=== PATIENT | male | born 1965 | race Caucasian/White ===

== ENCOUNTER 2016-12-21 08:56 | Emergency (ER) | payer OTHER ==
[~2016-12-21] VITALS: Ht 190.5 cm; Wt 122.7 kg
[~2016-12-21 08:56] MED LIST: /CIPR75TA OR; FLAG500T OR; HYDR25TA6 OR; LISI20TA5 OR; NAPR500T OR; OMEP20TA7 OR; PERC5TAB8 OR; SYNT112T OR; VALI10TA OR; VICO5TAB OR
[2016-12-21] MEDS ORDERED: HYDR1CAP25 (09:06)
[2016-12-21] MEDS ORDERED: PRAZ2CAP (09:06)
[2016-12-21] MEDS ORDERED: BUPR150T5 (09:06)
[2016-12-21] MEDS ORDERED: VIAG100T (09:06)
[2016-12-21] MEDS ORDERED: ONDANSETRON 4MG/2ML VIAL (J2405) IV ONE (09:15)
[2016-12-21] MEDS ORDERED: NS 1,000 ML IV ONE (09:15)
[2016-12-21] MEDS: MORPHINE 4 MG/ML 1ML SYRINGE IV PRN ×2 (09:31→10:11)
[2016-12-21] MEDS ORDERED: GASTROGRAFIN SOLUTION 30ML (Q9963) As Ordered ONE (09:37)
[2016-12-21 09:40] LABS: BASO % 0.4 % (0.0-1.0); EOS % 3.8 % (0.0-3.0); LARGE UNSTAINED CELL % 1.1 % (0.0-4.0); LYMPH # 1.9 K/mm3 (1.5-4.5); LYMPH % 18.2 % (24.0-44.0); MEAN CORPUSCULAR HEMOGLOBIN 31.2 pg (27.0-33.0); MEAN CORPUSCULAR HGB CONC 34.4 g/dl (32.0-36.5); MEAN CORPUSCULAR VOLUME 90.9 fl (80.0-96.0); MONO # 0.5 K/mm3 (0.0-0.8); MONO % 5.1 % (0.0-5.0); NEUTROPHILS # 6.9 K/mm3 (1.8-7.7); NEUTROPHILS % 71.5 % (36.0-66.0); PLATELET COUNT, AUTOMATED 240 k/mm3 (150-450); RED CELL DISTRIBUTION WIDTH 13.6 % (11.5-14.5); WHITE BLOOD COUNT 9.7 K/mm3 (4.0-10.0)
[2016-12-21 09:41] LABS: EOS # 0.4 K/mm3 (0.0-0.50); LARGE UNSTAINED CELL # 0.1 K/mm3 (0.0-0.4)
[2016-12-21] MEDS ORDERED: GASTROGRAFIN SOLUTION 30ML PO ONE (09:45)
[2016-12-21 10:02] LABS: ANION GAP 6 MEQ/L (8-16); BLOOD UREA NITROGEN 15 MG/DL (7-18); CALCIUM LEVEL 9.3 MG/DL (8.5-10.1); CARBON DIOXIDE LEVEL 25 MEQ/L (21-32); CHLORIDE LEVEL 107 MEQ/L (98-107); CREATININE FOR GFR 1.04 MG/DL (0.70-1.30); GLOMERULAR FILTRATION RATE > 60.0 (>56); GLUCOSE, FASTING 119 MG/DL (70-105); POTASSIUM SERUM 4.1 MEQ/L (3.5-5.1); SODIUM LEVEL 138 MEQ/L (136-145)
[2016-12-21] MEDS ORDERED: GASTROGRAFIN SOLUTION 30ML (Q9963) PO ONE (10:15)
[2016-12-21] MEDS ORDERED: ISOVUE-370 76% 100ML VIAL (Q9967) As Ordered ONE (10:20)
--- NOTE | 2016-12-21 11:47 | REP ---
CT of the abdomen pelvis with IV and bowel contrast: Comparison is 04/30/2016. There is very mild focal pericolonic inflammation at the distal descending colon adjacent to colonic diverticula , similar to the comparison study. This is compatible with mild diverticulitis. There is no evidence of focal fluid collection or abscess. There is no pneumoperitoneum. There is no peritoneal fluid collection. There is no bowel distension or obstruction. The visualized lung peters are unremarkable. The hepatic parenchyma is homogeneous. The gallbladder, pancreas and spleen are unremarkable. The adrenals, kidneys and abdominal aorta are unremarkable except for a 1 cm right renal cortical cyst. This is unchanged. The abdominal aorta and retroperitoneum are unremarkable. There is no bowel distension or obstruction. Mesentery is otherwise unremarkable. Prostatic of this are incidentally noted. The bladder is unremarkable. Impression: Findings are compatible with diverticulitis without evidence of abscess formation. There is no peritoneal fluid or pneumoperitoneum. Findings are similar to 04/30/2016. Signed by Blayne Hamilton MD 12/21/2016 11:39 A
[2016-12-21] MEDS ORDERED: FLAG500T PO (12:38)
[2016-12-21] MEDS ORDERED: ZOFR4TAB3 PO (12:38)
[2016-12-21] MEDS ORDERED: CIPR-249 PO (12:38)
[2016-12-21] MEDS ORDERED: NORCOTAB PO (12:38)
[2016-12-21 12:51] VITALS: BP 138/90
== END 2016-12-21 13:13 | disposition home or self-care (01) ==
LOC: M ED 08:56
DX: K57.30 Diverticulosis of large intestine without perforation or abscess without bleeding (principal); I10 Essential (primary) hypertension; E03.9 Hypothyroidism, unspecified; F41.9 Anxiety disorder, unspecified; F17.210 Nicotine dependence, cigarettes, uncomplicated; Z79.899 Other long term (current) drug therapy
CPT/HCPCS: 74177; 80048; 81001; 85025; 96361; 96374; 96375; 96376; 99283; J2405; Q9963; Q9967

== ENCOUNTER 2018-01-27 05:19 | Observation (INO) | payer OTHER ==
[2018-01-27] MEDS: NS 500 ML IV (06:15)
[2018-01-27] MEDS: HYDROMORPHONE HCL 0.5 MG/ 0.5 ML SYRINGE (J1170 PER 1) IV ×2 (06:26→06:38)
[2018-01-27] MEDS: GASTROGRAFIN SOLUTION 30ML PO ×2 (06:30→07:00)
[2018-01-27 06:37] LABS: BASO # 0.1 10^3/uL (0.0-0.2); BASO % 0.6 % (0.0-1.0); EOS # 0.3 10^3/uL (0.0-0.50); EOS % 3.5 % (0.0-3.0); HEMATOCRIT 43.1 % (42.0-52.0); HEMOGLOBIN 14.5 g/dl (13.5-17.5); IMMATURE GRANULOCYTE % 0.4 % (0-3.0); LYMPH # 2.2 10^3/uL (1.5-4.5); LYMPH % 23.8 % (24.0-44.0); MEAN CORPUSCULAR HEMOGLOBIN 31.3 pg (27.0-33.0); MEAN CORPUSCULAR HGB CONC 33.6 g/dl (32.0-36.5); MEAN CORPUSCULAR VOLUME 92.9 fl (80.0-96.0); MONO # 0.8 10^3/uL (0.0-0.8); MONO % 8.6 % (0.0-5.0); NEUTROPHILS # 5.9 10^3/uL (1.8-7.7); NEUTROPHILS % 63.1 % (36.0-66.0); PLATELET COUNT, AUTOMATED 242 10^3/uL (150-450); RED BLOOD COUNT 4.64 10^6/uL (4.30-6.10); RED CELL DISTRIBUTION WIDTH 13.7 % (11.5-14.5); WHITE BLOOD COUNT 9.4 10^3/uL (4.0-10.0)
[2018-01-27 06:58] LABS: ALBUMIN 3.8 GM/DL (3.2-5.2); ALBUMIN/GLOBULIN RATIO 1.06 (1.00-1.93); ALKALINE PHOSPHATASE 59 U/L (45-117); ALT/SGPT 52 U/L (12-78); ANION GAP 7 MEQ/L (8-16); AST/SGOT 24 U/L (7-37); BILIRUBIN,DIRECT 0.1 MG/DL (0.0-0.2); BILIRUBIN,TOTAL 0.4 MG/DL (0.2-1.0); BLOOD UREA NITROGEN 11 MG/DL (7-18); CALCIUM LEVEL 8.8 MG/DL (8.5-10.1); CARBON DIOXIDE LEVEL 26 MEQ/L (21-32); CHLORIDE LEVEL 107 MEQ/L (98-107); CREATININE FOR GFR 1.16 MG/DL (0.70-1.30); GLOMERULAR FILTRATION RATE > 60.0 (>56); GLUCOSE, FASTING 121 MG/DL (70-100); LIPASE 171 U/L (73-393); POTASSIUM SERUM 4.1 MEQ/L (3.5-5.1); SODIUM LEVEL 140 MEQ/L (136-145); TOTAL PROTEIN 7.4 GM/DL (6.4-8.2)
[2018-01-27 07:05] LABS: APPEARANCE, URINE CLEAR (CLEAR); BACTERIA, URINE AUTO NEGATIVE (NEGATIVE); BILIRUBIN, URINE AUTO NEGATIVE (NEGATIVE); BLOOD, URINE BLOOD NEGATIVE (NEGATIVE); COLOR, URINE YELLOW (YELLOW); GLUCOSE, URINE (UA) AUTO NEGATIVE (NEGATIVE); KETONE, URINE AUTO NEGATIVE (NEGATIVE); LEUKOCYTE ESTERASE, URINE AUTO 1+ (NEGATIVE); MUCUS, URINE SMALL (NEGATIVE); NITRITE, URINE AUTO NEGATIVE (NEGATIVE); PROTEIN, URINE AUTO NEGATIVE (NEGATIVE); RBC, URINE AUTO 2 /HPF (0-3); SPECIFIC GRAVITY URINE AUTO 1.015 (1.002-1.035); SQUAMOUS EPITHELIAL CELL UR AU 0 /HPF (0-6); UROBILINOGEN, URINE AUTO 0.2 mg/dL (0.0-2.0); WBC, URINE AUTO 9 /HPF (0-3)
[2018-01-27] MEDS ORDERED: METAL LOCK LOOP XX (07:25)
[2018-01-27] MEDS ORDERED: ISOVUE-370 76% 100ML VIAL (Q9967) As Ordered (07:59)
[2018-01-27] MEDS: ONDANSETRON 4MG/2ML VIAL (J2405) IV (08:15)
[2018-01-27] MEDS: MORPHINE 4 MG/ML 1ML VIAL/SYRINGE (J2270) IV ×4 (08:28→20:48)
[2018-01-27] MEDS: NS 1,000 ML IV ×3 (08:45→13:05)
[2018-01-27] MEDS: CIPROFLOXACIN 400 MG in APPROPRIATE DILUENT 1 EA IV ×2 (08:45→20:48)
[2018-01-27] MEDS: DOCUSATE SODIUM 100 MG CAP PO ×2 (09:00→20:42)
[2018-01-27] MEDS: metroNIDAZOLE 500 MG in APPROPRIATE DILUENT 1 EA IV ×2 (09:25→17:54)
[2018-01-27] MEDS ORDERED: BISACODYL 5 MG TAB PO (10:15)
[2018-01-27] MEDS: PERCOCET 5MG/325MG TAB PO ×2 (12:36→18:29)
[2018-01-27] MEDS ORDERED: ALBUTEROL 90 MCG/ACT 8GM HFA INHALER INH (13:15)
[2018-01-27] MEDS ORDERED: LORATADINE 10 MG TAB PO (13:15)
[2018-01-27] MEDS ORDERED: hydrOXYzine 25 MG TAB PO (13:15)
[2018-01-27] MEDS ORDERED: diazePAM 5 MG TAB PO (13:15)
[2018-01-27] MEDS: OMEPRAZOLE 20 MG CAP PO (17:53)
[2018-01-27] MEDS: buPROPion **SR TABLET** (ZYBAN) 150MG PO (17:53)
[2018-01-27] MEDS: NICOTINE 7 MG/24 HR TRANSDERMAL TD (17:54)
[2018-01-27] MEDS: ACETAMINOPHEN TAB 650MG DOSE (2X325MG) PO (18:02)
[2018-01-27] MEDS: PREGABALIN 75 MG CAP(LYRICA) PO ×2 (20:43→20:55)
[2018-01-27] MEDS: LISINOPRIL 20 MG TAB PO (20:43)
[2018-01-27] MEDS: diazePAM 5 MG TAB PO (20:43)
[2018-01-27] MEDS: PRAZOSIN 1 MG CAP PO (20:47)
[2018-01-27] MEDS: SYMBICORT 80/4.5MCG INHALER 6GM INH (21:00)
[2018-01-28] MEDS: PERCOCET 5MG/325MG TAB PO (00:46)
[2018-01-28] MEDS: metroNIDAZOLE 500 MG in APPROPRIATE DILUENT 1 EA IV (02:44)
[2018-01-28] MEDS: LEVOTHYROXINE 150MCG TABLET (0.15MG) PO (05:52)
[2018-01-28 08:14] LABS: HEMATOCRIT 38.3 % (42.0-52.0); HEMOGLOBIN 12.7 g/dl (13.5-17.5); MEAN CORPUSCULAR HEMOGLOBIN 31.1 pg (27.0-33.0); MEAN CORPUSCULAR HGB CONC 33.2 g/dl (32.0-36.5); MEAN CORPUSCULAR VOLUME 93.6 fl (80.0-96.0); PLATELET COUNT, AUTOMATED 199 10^3/uL (150-450); RED BLOOD COUNT 4.09 10^6/uL (4.30-6.10); RED CELL DISTRIBUTION WIDTH 13.8 % (11.5-14.5); WHITE BLOOD COUNT 7.3 10^3/uL (4.0-10.0)
[2018-01-28 08:31] LABS: ANION GAP 5 MEQ/L (8-16); BLOOD UREA NITROGEN 8 MG/DL (7-18); CALCIUM LEVEL 8.2 MG/DL (8.5-10.1); CARBON DIOXIDE LEVEL 26 MEQ/L (21-32); CHLORIDE LEVEL 109 MEQ/L (98-107); CREATININE FOR GFR 0.93 MG/DL (0.70-1.30); GLOMERULAR FILTRATION RATE > 60.0 (>56); GLUCOSE, FASTING 107 MG/DL (70-100); MAGNESIUM LEVEL 2.1 MG/DL (1.8-2.4); POTASSIUM SERUM 4.3 MEQ/L (3.5-5.1); SODIUM LEVEL 140 MEQ/L (136-145)
[2018-01-28] MEDS: OMEPRAZOLE 20 MG CAP PO (09:04)
[2018-01-28] MEDS: buPROPion **SR TABLET** (ZYBAN) 150MG PO (09:05)
[2018-01-28] MEDS: PREGABALIN 75 MG CAP(LYRICA) PO (09:05)
[2018-01-28] MEDS: DOCUSATE SODIUM 100 MG CAP PO (09:05)
[2018-01-28] MEDS: NICOTINE 7 MG/24 HR TRANSDERMAL TD (09:05)
[2018-01-28] MEDS: LISINOPRIL 20 MG TAB PO (09:05)
[2018-01-28] MEDS: SYMBICORT 80/4.5MCG INHALER 6GM INH (09:06)
== END 2018-01-28 09:14 | disposition home or self-care (01) ==
LOC: M ED 05:19 → M ED INP 10:03 → M MSPAV 12:05
DX: K57.32 Diverticulitis of large intestine without perforation or abscess without bleeding (principal); F43.10 Post-traumatic stress disorder, unspecified; I10 Essential (primary) hypertension; G47.33 Obstructive sleep apnea (adult) (pediatric); E06.3 Autoimmune thyroiditis; Z79.899 Other long term (current) drug therapy
CPT/HCPCS: J2270

== ENCOUNTER 2018-06-27 08:29 | Day surgery (SDC) | payer OTHER ==
[~2018-06-27] VITALS: Ht 193 cm; Wt 110.7 kg
[~2018-06-27 08:29] MED LIST changes: +BUPR150T5 PO; +CIPR-249 PO; +DIAZ5TAB PO; +FLAG500T PO; +HYDR-3363 PO; +HYDR1CAP25; +LEVO150T42 PO; +LISI20TA PO; +LORA10TA3 PO; +LYRI75CA PO; +NAPR-885 PO; +NORCOTAB PO; +OMEP20CA3 PO; +PERCOCET PO; +PRAZ2CAP PO; +SYMB80INH INH; +VENTAER INH; +VIAG100T PO; +ZOFR4TAB14 PO
[2018-06-27] MEDS ORDERED: NS 1,000 ML IV SCH (10:00)
[2018-06-27] MEDS ORDERED: PROPOFOL 200 MG/20 ML VIAL As Ordered ONE ×2 (10:08→11:43)
[2018-06-27] MEDS ORDERED: LIDOCAINE 2% INJ 100 MG/5 ML SDV (FOR ANES.) As Ordered ONE (10:08)
--- NOTE | 2018-06-27 12:00 | ROOR ---
Patient Name: Emigdio Leon Procedure Date: 06/27/2018 11:13 AM Date of : 1965 Age: 53 Room: [facility] Gender: Male Note Status: Finalized Procedure: Upper GI endoscopy Indications: Follow-up of Nicole's esophagus Providers: Tristen Powell MD Referring MD: [facility], Admin. Requesting Provider: Medicines: Monitored Anesthesia Care Complications: No immediate complications. Procedure: Pre-Anesthesia Assessment: - Prior to the procedure, a History and Physical was performed, and patient medications and allergies were reviewed. The patient is competent. The risks and benefits of the procedure and the sedation options and risks were discussed with the patient. All questions were answered and informed consent was obtained. Patient identification and proposed procedure were verified by the physician, the nurse and the anesthesiologist in the endoscopy suite. Mental Status Examination: alert and oriented. Airway Examination: normal oropharyngeal airway and neck mobility. Respiratory Examination: clear to auscultation. CV Examination: normal. Prophylactic Antibiotics: The patient does not require prophylactic antibiotics. Prior Anticoagulants: The patient has taken no previous anticoagulant or antiplatelet agents. ASA Grade Assessment: II - A patient with mild systemic disease. After reviewing the risks and benefits, the patient was deemed in satisfactory condition to undergo the procedure. The anesthesia plan was to use monitored anesthesia care (MAC). Immediately prior to administration of medications, the patient was re-assessed for adequacy to receive sedatives. The heart rate, respiratory rate, oxygen saturations, blood pressure, adequacy of pulmonary ventilation, and response to care were monitored throughout the procedure. The physical status of the patient was re-assessed after the procedure. The Endoscope was introduced through the mouth, and advanced to the third part of duodenum. The upper GI endoscopy was accomplished without difficulty. The patient tolerated the procedure well. Findings: The Z-line was irregular and was found 38 cm from the incisors. This was biopsied with a cold forceps for histology. Estimated blood loss was minimal. Bilious fluid was found in the gastric body. The duodenal bulb, first portion of the duodenum, second portion of the duodenum and third portion of the duodenum were normal. Impression: - Z-line irregular, 38 cm from the incisors. Biopsied. - Bilious gastric fluid. - Normal duodenal bulb, first portion of the duodenum, second portion of the duodenum and third portion of the duodenum. Recommendation: - Discharge patient to home (ambulatory). - Continue present medications. - Telephone my office for pathology results in 1 week. Tristen Powell MD Tristen Powell MD 06/27/2018 12:00:40 PM This report has been signed electronically. Number of Addenda: 0 Note Initiated On: 06/27/2018 11:13 AM Estimated Blood Loss: Estimated blood loss was minimal.
--- NOTE | 2018-06-27 12:07 | ROOR ---
Patient Name: Emigdio Leon Procedure Date: 06/27/2018 11:14 AM Date of : 1965 Age: 53 Room: [facility] Gender: Male Note Status: Finalized Procedure: Colonoscopy Indications: Abdominal pain in the left lower quadrant, Diverticulitis Providers: Tristen Powell MD Referring MD: [facility], Admin. Requesting Provider: Medicines: Monitored Anesthesia Care Complications: No immediate complications. Procedure: Pre-Anesthesia Assessment: - Prior to the procedure, a History and Physical was performed, and patient medications and allergies were reviewed. The patient is competent. The risks and benefits of the procedure and the sedation options and risks were discussed with the patient. All questions were answered and informed consent was obtained. Patient identification and proposed procedure were verified by the physician, the nurse and the anesthesiologist in the endoscopy suite. Mental Status Examination: alert and oriented. Airway Examination: normal oropharyngeal airway and neck mobility. Respiratory Examination: clear to auscultation. CV Examination: normal. Prophylactic Antibiotics: The patient does not require prophylactic antibiotics. Prior Anticoagulants: The patient has taken no previous anticoagulant or antiplatelet agents. ASA Grade Assessment: II - A patient with mild systemic disease. After reviewing the risks and benefits, the patient was deemed in satisfactory condition to undergo the procedure. The anesthesia plan was to use monitored anesthesia care (MAC). Immediately prior to administration of medications, the patient was re-assessed for adequacy to receive sedatives. The heart rate, respiratory rate, oxygen saturations, blood pressure, adequacy of pulmonary ventilation, and response to care were monitored throughout the procedure. The physical status of the patient was re-assessed after the procedure. The Colonoscope was introduced through the anus and advanced to the cecum, identified by appendiceal orifice and ileocecal valve. The colonoscopy was performed without difficulty. The patient tolerated the procedure well. The quality of the bowel preparation was good. Findings: The perianal and digital rectal examinations were normal. A diminutive polyp was found in the transverse colon. The polyp was sessile. The polyp was removed with a cold snare. Resection and retrieval were complete. Estimated blood loss was minimal. A diminutive polyp was found in the descending colon at 70 cm proximal to the anus. The polyp was sessile. The polyp was removed with a cold snare. Resection and retrieval were complete. Estimated blood loss was minimal. Two sessile polyps were found in the rectum. The polyps were diminutive in size. These polyps were removed with a cold snare. Resection and retrieval were complete. Estimated blood loss was minimal. A few small-mouthed diverticula were found in the sigmoid colon and descending colon. There was no evidence of diverticular bleeding, (+)muscular hypertrophy, no narr. There was evidence of a prior end-to-end colo-colonic anastomosis in the rectum. This was patent and was characterized by healthy appearing mucosa. The anastomosis was traversed. No additional abnormalities were found on retroflexion. Impression: - One diminutive polyp in the transverse colon, removed with a cold snare. Resected and retrieved. - One diminutive polyp in the descending colon at 70 cm proximal to the anus, removed with a cold snare. Resected and retrieved. - Two diminutive polyps in the rectum, removed with a cold snare. Resected and retrieved. - Mild diverticulosis in the sigmoid colon and in the descending colon. There was no evidence of diverticular bleeding, (+)muscular hypertrophy, no narr. - Patent end-to-end colo-colonic anastomosis, characterized by healthy appearing mucosa. Recommendation: - Discharge patient to home (ambulatory). - Repeat colonoscopy in 5 years for surveillance. Tristen Powell MD Tristen Powell MD 06/27/2018 12:07:18 PM This report has been signed electronically. Number of Addenda: 0 Note Initiated On: 06/27/2018 11:14 AM Estimated Blood Loss: Estimated blood loss was minimal.
[2018-06-27 12:15] VITALS: BP 126/85
== END 2018-06-27 12:29 | disposition home or self-care (01) ==
LOC: M OPP 08:29
PROVIDERS: ATTEND Surgery
DX: D12.4 Benign neoplasm of descending colon (principal); D12.3 Benign neoplasm of transverse colon; K62.1 Rectal polyp; Z98.0 Intestinal bypass and anastomosis status; R10.32 Left lower quadrant pain; K22.8 Other specified diseases of esophagus; K22.70 Barrett's esophagus without dysplasia; F17.210 Nicotine dependence, cigarettes, uncomplicated; G47.30 Sleep apnea, unspecified; Z79.899 Other long term (current) drug therapy; T88.59XD Other complications of anesthesia, subsequent encounter

== ENCOUNTER 2019-03-03 16:59 | Emergency (ER) | payer OTHER, MEDICARE ==
[~2019-03-03] VITALS: Ht 190.5 cm; Wt 115.3 kg
[~2019-03-03 16:59] MED LIST changes: +HYDR-3715 PO; -LISI20TA PO; +LISI20TA19 PO; -NORCOTAB PO; -OMEP20CA3 PO; +OMEP20CA4 PO
[2019-03-03] MEDS ORDERED: TRAZ-252 PO (17:38)
[2019-03-03] MEDS ORDERED: METR375C3 PO (17:39)
[2019-03-03] MEDS ORDERED: KETOROLAC 30 MG/ML VIAL (J1885) IV ONE (18:15)
[2019-03-03] MEDS ORDERED: NS 1,000 ML IV ONE (18:15)
[2019-03-03 18:44] LABS: HEMATOCRIT 46.4 % (42.0-52.0); HEMOGLOBIN 15.6 g/dl (13.5-17.5); MEAN CORPUSCULAR HEMOGLOBIN 31.3 pg (27.0-33.0); MEAN CORPUSCULAR HGB CONC 33.6 g/dl (32.0-36.5); PLATELET COUNT, AUTOMATED 297 10^3/uL (150-450); RED BLOOD COUNT 4.99 10^6/uL (4.30-6.10); WHITE BLOOD COUNT 12.6 10^3/uL (4.0-10.0)
[2019-03-03] MEDS ORDERED: ISOVUE-370 76% 100ML VIAL (Q9967) As Ordered ONE (18:53)
[2019-03-03 19:08] LABS: ALBUMIN 4.1 GM/DL (3.2-5.2); BILIRUBIN,DIRECT 0.2 MG/DL (0.0-0.2); BILIRUBIN,TOTAL 0.7 MG/DL (0.2-1.0); TOTAL PROTEIN 7.9 GM/DL (6.4-8.2)
[2019-03-03] MEDS ORDERED: ONDANSETRON 4MG/2ML VIAL (J2405) IV ONE (19:30)
[2019-03-03] MEDS ORDERED: MORPHINE 2 MG/ML 1ML VIAL (J2270) IV ONE (19:30)
--- NOTE | 2019-03-03 19:56 | REPVR ---
PROCEDURE INFORMATION: Exam: CT Abdomen And Pelvis With Contrast Exam date and time: 03/03/2019 6:55 PM Clinical history: 53 years old, male; Abdominal pain; Localized; Left lower quadrant (llq); Additional info: Llq pain, HX divertivulitis TECHNIQUE: Imaging protocol: Computed tomography of the abdomen and pelvis with intravenous contrast. Radiation optimization: All CT scans at this facility use at least one of these dose optimization techniques: automated exposure control; mA and/or kV adjustment per patient size (includes targeted exams where dose is matched to clinical indication); or iterative reconstruction. Contrast material: ISOVUE 370; Contrast volume: 100 ml; Contrast route: IV; COMPARISON: CT ABD/PEL W/IV ORAL CONTRAS 01/27/2018 7:56 AM FINDINGS: Liver: Normal. No mass. Gallbladder and bile ducts: Normal. No calcified stones. No ductal dilation. Pancreas: Normal. No ductal dilation. Spleen: Normal. No splenomegaly. Adrenals: Normal. No mass. Kidneys and ureters: Normal. No hydronephrosis. Stomach and bowel: There are findings of acute sigmoid diverticulitis with wall thickening, inflammation, and fat stranding surrounding an area of extensive diverticular disease. No evidence of perforation. No drainable abscess. Appendix: No evidence of appendicitis. Intraperitoneal space: Unremarkable. No free air. No significant fluid collection. Vasculature: Mild aortic and branch vessel atherosclerosis. Lymph nodes: Unremarkable. No enlarged lymph nodes. Bladder: Unremarkable as visualized. Reproductive: Multiple prostate calcifications. Bones/joints: Bilateral L5 pars interarticularis defects with grade 1 spondylolisthesis. Soft tissues: Multiple surgical clips are present in the right upper abdomen Small fat containing left inguinal hernia. IMPRESSION: Acute uncomplicated sigmoid diverticulitis. Electronically signed by: Tim Garcia On 03/03/2019 19:55:58 PM
[2019-03-03] MEDS ORDERED: CIPROFLOXACIN 500 MG TAB PO STA (20:02)
[2019-03-03] MEDS ORDERED: metroNIDAZOLE (FLAGYL) 500 MG TAB PO STA (20:09)
[2019-03-03] MEDS ORDERED: CIPR-249 PO (21:02)
[2019-03-03] MEDS ORDERED: NORC1TAB7 PO (21:03)
[2019-03-03] MEDS ORDERED: ZOFR4TAB16 PO (21:03)
[2019-03-03] MEDS ORDERED: FLAG500T PO (21:03)
[2019-03-03 21:11] VITALS: BP 137/87
[2019-03-03] MEDS ORDERED: NORCO 5/325MG TABLET (BULK FOR ED) PO ONE (21:15)
== END 2019-03-03 21:35 | disposition home or self-care (01) ==
LOC: M ED 16:59
DX: K57.32 Diverticulitis of large intestine without perforation or abscess without bleeding (principal); I10 Essential (primary) hypertension; Z87.442 Personal history of urinary calculi; Z87.448 Personal history of other diseases of urinary system; K21.9 Gastro-esophageal reflux disease without esophagitis; Z87.19 Personal history of other diseases of the digestive system; M51.26 Other intervertebral disc displacement, lumbar region; F43.10 Post-traumatic stress disorder, unspecified; G47.00 Insomnia, unspecified; F41.9 Anxiety disorder, unspecified; F17.200 Nicotine dependence, unspecified, uncomplicated; F12.10 Cannabis abuse, uncomplicated; Z79.899 Other long term (current) drug therapy
CPT/HCPCS: 74177; 80047; 80076; 81001; 83690; 85027; 87088; 87186; 96374; 96375; 99284; J1885; J2270; J2405; Q9967

== ENCOUNTER 2019-06-11 10:42 | Day surgery (SDC) | payer MEDICARE, OTHER ==
[~2019-06-11] VITALS: Ht 190.5 cm; Wt 116.4 kg
[~2019-06-11 10:42] MED LIST changes: +METR375C3 PO; +NORC1TAB7 PO; +OMEP1CAP73 PO; -OMEP20CA4 PO; +TRAZ-252 PO; +ZOFR4TAB16 PO
[2019-06-11 11:52] LABS: BASO # 0.1 10^3/uL (0.0-0.2); BASO % 0.9 % (0.0-1.0); EOS # 0.4 10^3/uL (0.0-0.5); EOS % 4.3 % (0.0-3.0); HEMATOCRIT 44.3 % (42.0-52.0); HEMOGLOBIN 14.9 g/dl (13.5-17.5); LYMPH # 2.7 10^3/uL (1.5-5.0); LYMPH % 28.9 % (24.0-44.0); MEAN CORPUSCULAR HEMOGLOBIN 30.7 pg (27.0-33.0); MEAN CORPUSCULAR HGB CONC 33.6 g/dl (32.0-36.5); MEAN CORPUSCULAR VOLUME 91.3 fl (80.0-96.0); MONO # 0.7 10^3/uL (0.0-0.8); MONO % 7.2 % (0.0-5.0); NEUTROPHILS # 5.4 10^3/uL (1.5-8.5); NEUTROPHILS % 58.3 % (36.0-66.0); PLATELET COUNT, AUTOMATED 321 10^3/uL (150-450); RED BLOOD COUNT 4.85 10^6/uL (4.30-6.10); WHITE BLOOD COUNT 9.2 10^3/uL (4.0-10.0)
[2019-06-11 12:14] LABS: ALBUMIN 4.1 GM/DL (3.2-5.2); ALT/SGPT 37 U/L (12-78); BILIRUBIN,DIRECT 0.2 MG/DL (0.0-0.2); BILIRUBIN,TOTAL 0.5 MG/DL (0.2-1.0); BLOOD UREA NITROGEN 12 MG/DL (7-18); CALCIUM LEVEL 9.4 MG/DL (8.5-10.1); CARBON DIOXIDE LEVEL 27 MEQ/L (21-32); CHLORIDE LEVEL 106 MEQ/L (98-107); CREATININE FOR GFR 1.13 MG/DL (0.70-1.30); GLOMERULAR FILTRATION RATE > 60.0 (>56); GLUCOSE, FASTING 98 MG/DL (70-100); LIPASE 119 U/L (73-393); POTASSIUM SERUM 4.2 MEQ/L (3.5-5.1); SODIUM LEVEL 140 MEQ/L (136-145); TOTAL PROTEIN 7.5 GM/DL (6.4-8.2)
[2019-06-11] MEDS ORDERED: MORPHINE 4 MG/ML 1ML VIAL/SYRINGE (J2270) IV ONE (13:15)
--- NOTE | 2019-06-11 14:31 | REP ---
CT ABDOMEN AND PELVIS WITHOUT CONTRAST: CT abdomen and pelvis performed without oral or IV contrast. Sagittal and coronal reconstruction images are performed. Comparison is made with prior studies, most recent of which is 03/03/2019. Visualized lung bases are clear. The liver, spleen, adrenals, pancreas and kidneys are grossly unremarkable. No renal, ureteral or bladder calculus is seen and there is no evidence of hydroureteronephrosis. However, a 5 mm calculus is seen in the bulbous portion of the urethra. There is also a 5 mm calculus in the distal penile urethra. There is no abdominal aortic aneurysm with mild scattered atherosclerotic calcification. No adenopathy is seen. There is no free air or free fluid. Multiple metallic clips are seen in the right side of the abdomen. I see no bowel wall thickening. There is sigmoid diverticulosis without acute diverticulitis. There are also multiple diverticula of the left colon. There is a small left inguinal hernia containing fat. Urinary bladder is mildly distended and grossly unremarkable. There are heavy prostatic calcifications noted. There are degenerative changes of the spine. There is spondylolysis of L5 with mild anterior grade 1 spondylolisthesis of L5 on S1. IMPRESSION: No renal or ureteral calculus and no hydroureteronephrosis. There is 5 mm calculus in the bulbous portion of the urethra. There is also a 5 mm calculus in the distal penile urethra. Small left inguinal hernia contains noninflamed fat. Electronically Signed by Blayne Gore MD 06/12/2019 01:41 P
[2019-06-11] MEDS ORDERED: BUPR450T PO (16:11)
[2019-06-11] MEDS ORDERED: LIDOCAINE 2% 5ML JELLY UROJET As Ordered ONE (17:05)
[2019-06-11] MEDS ORDERED: CONRAY-60 60% 50ML VIAL (Q9961) As Ordered ONE (17:05)
[2019-06-11] MEDS ORDERED: dexameTHASONE 4 MG/ML 1ML VIAL (J1100) As Ordered ONE (17:06)
[2019-06-11] MEDS ORDERED: LIDOCAINE 2% INJ 100 MG/5 ML SDV (FOR ANES.) As Ordered ONE (17:06)
[2019-06-11] MEDS ORDERED: ONDANSETRON 4MG/2ML VIAL (J2405) As Ordered ONE (17:06)
[2019-06-11] MEDS ORDERED: propofoL 200 MG/20 ML VIAL As Ordered ONE ×2 (17:06→18:03)
[2019-06-11] MEDS ORDERED: ceFAZolin 1GM INJ (J0690 PER 500MG) As Ordered ONE (17:14)
[2019-06-11] MEDS ORDERED: fentaNYL 100 MCG/2 ML INJECTION (J3010) As Ordered ONE (17:36)
[2019-06-11] MEDS ORDERED: MIDAZOLAM INJ 2 MG/2 ML VIAL (J2250) As Ordered ONE (17:36)
[2019-06-11] MEDS ORDERED: ceFAZolin 1GM INJ (J0690 PER 500MG) IV ONE (17:55)
[2019-06-11] MEDS ORDERED: KETOROLAC 60 MG/2 ML VIAL (J1885) As Ordered ONE (18:04)
[2019-06-11] MEDS ORDERED: fentaNYL 100 MCG/2 ML INJECTION (J3010) IV PRN (18:30)
[2019-06-11] MEDS ORDERED: PERCOCET 5MG/325MG TAB PO PRN (18:30)
[2019-06-11] MEDS ORDERED: ONDANSETRON 4MG/2ML VIAL (J2405) IV PRN (18:30)
[2019-06-11] MEDS ORDERED: METOCLOPRAMIDE INJ 10MG/2ML VIAL (J2765) IV PRN (18:30)
[2019-06-11] MEDS ORDERED: LR 1,000 ML IV SCH ×2 (18:30→19:30)
[2019-06-11 19:28] VITALS: BP 143/95
[2019-06-11] MEDS ORDERED: IBUPROFEN 600 MG TAB PO PRN (19:30)
--- NOTE | 2019-06-11 20:20 | CR ---
DATE OF CONSULTATION: 06/11/2019 REASON FOR CONSULTATION: Urethral calculi. HISTORY: This is a 54-year-old white male who began having problems voiding this morning. He felt a hard nodule in the urethral channel near the tip of the penis and could only urinate by squeezing the penis to get a little bit of urine out around this obstruction. He therefore came to the emergency room where a CAT scan was performed showing he had a stone at the urethral meatus and also in the prostatic urethra. A urologic consult was therefore called. PAST MEDICAL HISTORY: Significant for posttraumatic stress disorder (PTSD). He also has hypothyroidism, hypertension, and diverticulosis. PAST SURGICAL HISTORY: The patient had colon resection for diverticulitis and a colostomy reversal. He also had dental extractions. FAMILY HISTORY: Father had diabetes and coronary artery disease. No family history of urinary calculi. SOCIAL HISTORY: The patient is disabled from posttraumatic stress disorder (PTSD) and back issues, single, and smokes about a half a pack of cigarettes a day. REVIEW OF SYSTEMS: 12-point review of systems negative. PHYSICAL EXAMINATION: Alert and oriented white male who is in no acute distress. HEENT: Pupils are equal and reactive to light. Sclerae white. Extraocular muscles intact. NECK: Supple without adenopathy. Trachea is in the midline with no jugular venous distention. CHEST: Normal thoracic with breath sounds bilaterally present, equal and clear. CARDIAC: Rhythm is regular without murmurs. ABDOMEN: Rounded, soft, benign with no masses, organomegaly, or tenderness. GENITALIA: Shows a normal circumcised penis. Scrotum, testicles, epididymides, perineum are normal. EXTREMITIES: Good range of motion. Review of the CT scan confirms a distal urethral calculus and a calculus in the bulbous urethra. PLAN: The patient will be taken to the operating room for stone extraction. CT scan also shows numerous prostatic calculi which is the most likely source for these current stones.
--- NOTE | 2019-06-12 11:05 | RO ---
DATE OF PROCEDURE: 06/11/2019 PREOPERATIVE DIAGNOSIS: Urethral and prostate calculi. POSTOPERATIVE DIAGNOSES: Urethral and prostate calculi, meatal stenosis. PROCEDURE: Urethral dilation with cystoscopy and extraction of a urethral calculi. SURGEON: Dr. Jose Miguel Ramos FUMIGATOR AND STERILIZER: None ANESTHESIA: Spinal. INDICATION FOR OPERATION: This is a 54-year-old white male who had difficulty voiding because of an obstructive calculus in the distal urethra. He was therefore brought to the operating room for stone extraction. DESCRIPTION OF OPERATION: The patient was anesthetized with spinal anesthetic, placed in lithotomy position, prepped with Betadine paint, and draped in an aseptic manner. A time out was then performed. A 22 Kosovan cystoscope was then attempted to be inserted into the meatus without success because of severe stenosis. He was then dilated with [place] sounds starting at 8 Kosovan up to 30 Kosovan. The scope could then easily be inserted into the meatus and advanced under vision of a 30 degree lens to the bladder. In the bladder the patient's two urethral stones were sitting in the floor of the bladder. They were retrieved and the bladder was drained and cystoscope was removed. The prostatic urethra had an open cavity where the stones most likely originated in the anterior portion of the urethra near the apex. There were no other dilated ducts present in the urethral channel. The patient was awakened and sent to the recovery room in stable condition having tolerated the procedure well. EBL: Less than 10 cc DRAINS: None MTDD
== END 2019-06-11 20:14 | disposition home or self-care (01) ==
LOC: M ED 10:42 → M SDC 16:51
PROVIDERS: ATTEND Urology
DX: N21.1 Calculus in urethra (principal); N35.911 Unspecified urethral stricture, male, meatal; N42.0 Calculus of prostate; I10 Essential (primary) hypertension; J45.909 Unspecified asthma, uncomplicated; G47.30 Sleep apnea, unspecified; F17.218 Nicotine dependence, cigarettes, with other nicotine-induced disorders; Z79.899 Other long term (current) drug therapy; E03.9 Hypothyroidism, unspecified; K21.9 Gastro-esophageal reflux disease without esophagitis; F43.10 Post-traumatic stress disorder, unspecified; F32.9 Major depressive disorder, single episode, unspecified; F41.9 Anxiety disorder, unspecified
CPT/HCPCS: 52281; 74176; 80048; 80076; 81001; 82360; 83690; 85025; 87088; 87186; 88300; 96374; 99284; C1769; J0690; J1100; J1885; J2250; J2270; J2405; J3010

== ENCOUNTER 2020-02-07 07:59 | Emergency (ER) | payer OTHER ==
[~2020-02-07] VITALS: Ht 190.5 cm; Wt 117.8 kg
[~2020-02-07 07:59] MED LIST changes: +BUPR450T PO; -LISI20TA19 PO; +LISI20TA35 PO
[2020-02-07] MEDS ORDERED: NS 1,000 ML IV ONE (08:45)
[2020-02-07] MEDS ORDERED: MORPHINE 2 MG/ML 1ML VIAL (J2270) IV ONE (08:45)
[2020-02-07] MEDS ORDERED: ONDANSETRON 4MG/2ML VIAL IV ONE (08:45)
[2020-02-07] MEDS ORDERED: ISOVUE-370 76% 100ML VIAL As Ordered ONE (09:11)
[2020-02-07 09:14] LABS: BASO # 0.1 10^3/uL (0.0-0.2); BASO % 0.7 % (0.0-1.0); EOS # 0.3 10^3/uL (0.0-0.5); EOS % 3.4 % (0.0-3.0); HEMATOCRIT 42.8 % (42.0-52.0); HEMOGLOBIN 14.1 g/dl (13.5-17.5); LYMPH # 2.1 10^3/uL (1.5-5.0); LYMPH % 24.1 % (24.0-44.0); MEAN CORPUSCULAR HEMOGLOBIN 30.2 pg (27.0-33.0); MEAN CORPUSCULAR HGB CONC 32.9 g/dl (32.0-36.5); MEAN CORPUSCULAR VOLUME 91.6 fl (80.0-96.0); MONO # 0.7 10^3/uL (0.0-0.8); MONO % 8.3 % (0.0-5.0); NEUTROPHILS # 5.5 10^3/uL (1.5-8.5); PLATELET COUNT, AUTOMATED 266 10^3/uL (150-450); RED BLOOD COUNT 4.67 10^6/uL (4.30-6.10); WHITE BLOOD COUNT 8.6 10^3/uL (4.0-10.0)
[2020-02-07 09:39] LABS: ALBUMIN 3.9 GM/DL (3.2-5.2); BILIRUBIN,DIRECT 0.1 MG/DL (0.0-0.2); BILIRUBIN,TOTAL 0.3 MG/DL (0.2-1.0); TOTAL PROTEIN 7.2 GM/DL (6.4-8.2)
--- NOTE | 2020-02-07 09:43 | REPVR ---
PROCEDURE INFORMATION: Exam: CT Abdomen And Pelvis With Contrast Exam date and time: 02/07/2020 8:36 AM Age: 54 years old Clinical indication: Abdominal pain; Additional info: HX of diverticulitis with severe abd pain TECHNIQUE: Imaging protocol: Computed tomography of the abdomen and pelvis with intravenous contrast. Radiation optimization: All CT scans at this facility use at least one of these dose optimization techniques: automated exposure control; mA and/or kV adjustment per patient size (includes targeted exams where dose is matched to clinical indication); or iterative reconstruction. Contrast material: ISOVUE 370; Contrast volume: 100 ml; Contrast route: INTRAVENOUS (IV); COMPARISON: CT ABD PELVIS W/O CONTRAST 06/11/2019 12:59 PM FINDINGS: Liver: Normal. No mass. Gallbladder and bile ducts: Normal. No calcified stones. No ductal dilation. Pancreas: Normal. No ductal dilation. Spleen: Normal. No splenomegaly. Adrenals: Normal. No mass. Kidneys and ureters: Normal. No hydronephrosis. Stomach and bowel: There is mural thickening of the distal descending colon, with paracolonic diverticula and pericolonic soft tissue stranding with increased paracolic adipose attenuation. No evidence of perforation or abscess formation. Appendix: The vermiform appendix is not identified on this examination. There is, however, no pericecal abnormality to suggest appendicitis. Intraperitoneal space: Right upper quadrant pericolonic surgical clips. Vasculature: Mild aortic atherosclerotic calcification without aneurysm. The iliac arteries show mild bilateral atherosclerotic calcifications without evidence of aneurysm. Lymph nodes: No enlarged lymph nodes. Urinary bladder: Unremarkable as visualized. Reproductive: The prostate gland demonstrates nonspecific parenchymal calcifications. Bones/joints: Bilateral L5 spondylolysis. Anterior bridging bilateral sacroiliac joint marginal osteophytes. Slight L5-S1 anterolisthesis with slight spondylosis. Mild L4-L5 retrolisthesis. Inferior L3 vertebral body chronic endplate herniation. Soft tissues: A small left inguinal hernia is present containing only intra-abdominal fat. IMPRESSION: 1. Uncomplicated descending colonic diverticulitis. 2. Chronic calcific prostatitis. Electronically signed by: Jordan Garsia On 02/07/2020 09:43:18 AM
[2020-02-07] MEDS ORDERED: CIPR-249 PO (09:56)
[2020-02-07] MEDS ORDERED: FLAG500T PO (09:56)
[2020-02-07 10:02] VITALS: BP 135/92
== END 2020-02-07 10:25 | disposition home or self-care (01) ==
LOC: M ED 07:59
DX: K57.32 Diverticulitis of large intestine without perforation or abscess without bleeding (principal); N41.1 Chronic prostatitis; K59.00 Constipation, unspecified; I10 Essential (primary) hypertension; E03.9 Hypothyroidism, unspecified; F43.10 Post-traumatic stress disorder, unspecified; Z79.899 Other long term (current) drug therapy
CPT/HCPCS: 74177; 80047; 80076; 81001; 83690; 85025; 87088; 87186; 96361; 96374; 96375; 99284; J2270; J2405; Q9967

== ENCOUNTER 2020-04-15 11:26 | Emergency (ER) | payer OTHER ==
[~2020-04-15] VITALS: Ht 190.5 cm; Wt 123.2 kg
--- NOTE | 2020-04-15 12:03 | REP ---
INDICATION: constipation x 2 weeks. COMPARISON: 12/09/2010 FINDINGS: KUB shows the intestinal gas pattern to be nonspecific. There is a moderate amount of stool in the ascending and transverse colon. The organ silhouettes insofar as delineated are unremarkable. There is no evidence of free intraperitoneal air. IMPRESSION: Nonspecific. <Electronically signed by Fam Mcclelland > 04/15/20 [id number]
[2020-04-15] MEDS ORDERED: KETOROLAC 60MG 2ML VIAL IM ONE (12:15)
[2020-04-15 12:36] LABS: BASO # 0.1 10^3/uL (0.0-0.2); BASO % 0.9 % (0.0-1.0); EOS # 0.2 10^3/uL (0.0-0.5); EOS % 3.1 % (0.0-3.0); HEMATOCRIT 43.4 % (42.0-52.0); HEMOGLOBIN 14.1 g/dl (13.5-17.5); LYMPH % 25.3 % (24.0-44.0); MEAN CORPUSCULAR HEMOGLOBIN 29.7 pg (27.0-33.0); MEAN CORPUSCULAR HGB CONC 32.5 g/dl (32.0-36.5); MEAN CORPUSCULAR VOLUME 91.6 fl (80.0-96.0); MONO # 0.6 10^3/uL (0.0-0.8); MONO % 8.1 % (0.0-5.0); NEUTROPHILS # 4.9 10^3/uL (1.5-8.5); NEUTROPHILS % 62.1 % (36.0-66.0); PLATELET COUNT, AUTOMATED 284 10^3/uL (150-450); RED BLOOD COUNT 4.74 10^6/uL (4.30-6.10); WHITE BLOOD COUNT 7.8 10^3/uL (4.0-10.0)
--- NOTE | 2020-04-15 12:56 | REP ---
INDICATION: l inguinal pain extending to suprapubic, concern hernia COMPARISON: None. TECHNIQUE: B-mode grayscale ultrasound examination using curved array transducer. FINDINGS: The right groin and inguinal canal appear normal. The appendix is not visualized but no secondary sonographic signs of appendicitis are appreciated. Specifically, no fluid or adenopathy identified. The left groin demonstrates small fat containing inguinal hernia with a 16 mm defect at rest enlarging to 30 mm on Valsalva. IMPRESSION: 1. Normal right groin. No obvious appendicitis by ultrasound evaluation. 2. Small fat containing left inguinal hernia. <Electronically signed by Lisandro Michele > 04/15/20 [id number]
[2020-04-15 12:59] LABS: ALBUMIN 4.2 GM/DL (3.2-5.2); ALT/SGPT 51 U/L (12-78); BILIRUBIN,DIRECT 0.2 MG/DL (0.0-0.2); BILIRUBIN,TOTAL 0.6 MG/DL (0.2-1.0); BLOOD UREA NITROGEN 16 MG/DL (7-18); CALCIUM LEVEL 9.7 MG/DL (8.5-10.1); CARBON DIOXIDE LEVEL 27 MEQ/L (21-32); CHLORIDE LEVEL 105 MEQ/L (98-107); CREATININE FOR GFR 1.13 MG/DL (0.70-1.30); GLOMERULAR FILTRATION RATE > 60.0 (>56); GLUCOSE, FASTING 96 MG/DL (70-100); LIPASE 132 U/L (73-393); POTASSIUM SERUM 4.3 MEQ/L (3.5-5.1); SODIUM LEVEL 137 MEQ/L (136-145); TOTAL PROTEIN 7.8 GM/DL (6.4-8.2)
[2020-04-15] MEDS ORDERED: MORPHINE 10 MG/ML 1ML VIAL (J2270) IM ONE (13:15)
[2020-04-15 13:52] VITALS: BP 121/90
== END 2020-04-15 14:02 | disposition home or self-care (01) ==
LOC: M ED 11:26
DX: R10.31 Right lower quadrant pain (principal); K59.00 Constipation, unspecified; R14.1 Gas pain; K40.30 Unilateral inguinal hernia, with obstruction, without gangrene, not specified as recurrent; I10 Essential (primary) hypertension; K21.9 Gastro-esophageal reflux disease without esophagitis; K57.92 Diverticulitis of intestine, part unspecified, without perforation or abscess without bleeding; J45.909 Unspecified asthma, uncomplicated; G47.33 Obstructive sleep apnea (adult) (pediatric); E03.9 Hypothyroidism, unspecified; F43.10 Post-traumatic stress disorder, unspecified; F41.9 Anxiety disorder, unspecified; F32.9 Major depressive disorder, single episode, unspecified; Z87.442 Personal history of urinary calculi; N52.9 Male erectile dysfunction, unspecified; Z87.891 Personal history of nicotine dependence; Z79.899 Other long term (current) drug therapy
CPT/HCPCS: 36415; 74018; 76857; 80048; 80076; 81001; 83690; 85025; 87088; 87186; 96372; 99284; J1885; J2270

== ENCOUNTER 2020-04-16 01:14 | Emergency (ER) | payer OTHER ==
[~2020-04-16] VITALS: Ht 190.5 cm; Wt 124.0 kg
[2020-04-16 02:52] VITALS: BP 144/88
== END 2020-04-16 04:18 | disposition left against medical advice (07) ==
LOC: M ED 01:14
DX: Z53.21 Procedure and treatment not carried out due to patient leaving prior to being seen by health care provider (principal)

== ENCOUNTER → 2022-04-25 | Outpatient (REF) ==
[~2022-04-25] MED LIST changes: +BUPR-71 PO; -BUPR150T5 PO
== END ==
LOC: M LAB 12:28
PROVIDERS: ATTEND Nurse Practitioner Adult Health
DX: Z02.1 Encounter for pre-employment examination (principal)

== ENCOUNTER 2023-10-06 22:27 | Inpatient (IN) | payer OTHER ==
[~2023-10-06] VITALS: Ht 190.5 cm; Wt 129.1 kg
[2023-10-06] MEDS ORDERED: LEVO175T2 PO (22:55)
[2023-10-06] MEDS ORDERED: TEST75GE TD (23:18)
[2023-10-06] MEDS ORDERED: LEVO200T4 PO (23:18)
[2023-10-06] MEDS ORDERED: LEXA1TAB2 PO (23:18)
[2023-10-06] MEDS ORDERED: HOME MED LIST COMPLETE! XX SCH (23:20)
[2023-10-06 23:27] LABS: HEMATOCRIT 44.9 % (42.0-52.0); HEMOGLOBIN 14.9 g/dl (13.5-17.5); MEAN CORPUSCULAR HGB CONC 33.2 g/dl (32.0-36.5); MEAN CORPUSCULAR VOLUME 90.3 fl (80.0-96.0); PLATELET COUNT, AUTOMATED 296 10^3/uL (150-450); RED BLOOD COUNT 4.97 10^6/uL (4.30-6.10); WHITE BLOOD COUNT 9.4 10^3/uL (4.0-10.0)
[2023-10-06 23:42] LABS: AMPHETAMINES LEVEL URINE NEGATIVE (NEGATIVE); BARBITURATES URINE NEGATIVE (NEGATIVE); COCAINE METABOLITE URINE NEGATIVE (NEGATIVE); METHADONE URINE NEGATIVE (NEGATIVE); OPIATES URINE NEGATIVE (NEGATIVE); PHENCYCLIDINE URINE NEGATIVE (NEGATIVE)
[2023-10-06 23:45] LABS: ETHYL ALCOHOL (ETHANOL) 0.142 % (0.000-0.010)
[2023-10-06 23:47] LABS: ALBUMIN 3.6 G/DL (3.2-5.2); ALKALINE PHOSPHATASE 63 U/L (46-116); ALT/SGPT 70 U/L (7.0-40); AST/SGOT 44 U/L (<34); BILIRUBIN,DIRECT 0.1 MG/DL (<0.4); BILIRUBIN,TOTAL 0.4 MG/DL (0.3-1.2); BLOOD UREA NITROGEN 12 MG/DL (9-23); CALCIUM LEVEL 9.4 MG/DL (8.3-10.6); CARBON DIOXIDE LEVEL 27 MMOL/L (20-31); CHLORIDE LEVEL 103 MMOL/L (98-107); GLOMERULAR FILTRATION RATE > 60.0 (>49); GLUCOSE, FASTING 97 MG/DL (74-106); POTASSIUM SERUM 3.9 MMOL/L (3.5-5.1); SALICYLATE LEVEL < 3.0 MG/DL (<30); SODIUM LEVEL 137 MMOL/L (136-145); TOTAL PROTEIN 6.9 G/DL (5.7-8.2)
[2023-10-06 23:49] LABS: BENZODIAZEPINES URINE POSITIVE (NEGATIVE); CANNABINOIDS URINE POSITIVE (NEGATIVE); THYROID STIMULATING HORMONE 0.751 uIU/ML (0.55-4.78)
[2023-10-07 08:06] LABS: HEPATITIS B SURFACE ANTIGEN NEGATIVE (NEGATIVE)
[2023-10-07 08:26] LABS: HEPATITIS B CORE ANTIBODY IGM NEGATIVE (NEGATIVE)
[2023-10-07 08:27] LABS: HEPATITIS C VIRUS ABY INDEX < 0.02 INDEX (<0.8)
[2023-10-07] MEDS: buPROPion **XL** TABLET 150MG (WELLBUTRIN XL) PO SCH (08:31)
[2023-10-07] MEDS: hydroCHLOROthiazide 12.5 MG CAPSULE PO ONE (08:31)
[2023-10-07] MEDS: LEVOTHYROXINE 100MCG TABLET (0.1MG) PO SCH (08:31)
[2023-10-07] MEDS: OMEPRAZOLE 20MG CAP PO SCH (08:32)
[2023-10-07] MEDS: ESCITALOPRAM OXALATE 10 MG TAB (LEXAPRO) PO SCH (08:32)
[2023-10-07] MEDS: LORATADINE 10 MG TAB PO PRN (08:33)
[2023-10-07] MEDS: diazePAM 5MG TABLET PO PRN ×2 (08:33→20:22)
[2023-10-07 10:20] LABS: APPEARANCE, URINE CLEAR (CLEAR); BACTERIA, URINE AUTO NEGATIVE (NEGATIVE); BILIRUBIN, URINE AUTO NEGATIVE (NEGATIVE); BLOOD, URINE BLOOD NEGATIVE (NEGATIVE); COLOR, URINE STRAW (YELLOW); GLUCOSE, URINE (UA) AUTO NEGATIVE (NEGATIVE); KETONE, URINE AUTO NEGATIVE (NEGATIVE); LEUKOCYTE ESTERASE, URINE AUTO 1+ (NEGATIVE); NITRITE, URINE AUTO NEGATIVE (NEGATIVE); PROTEIN, URINE AUTO NEGATIVE (NEGATIVE); RBC, URINE AUTO 0 /HPF (0-3); SPECIFIC GRAVITY URINE AUTO 1.004 (1.002-1.035); SQUAMOUS EPITHELIAL CELL UR AU 0 /HPF (0-6); UROBILINOGEN, URINE AUTO 0.2 mg/dL (0.0-2.0); WBC, URINE AUTO 5 /HPF (0-3)
[2023-10-07] MEDS ORDERED: MOM 30ML SUSPENSION UDC PO PRN (10:55)
[2023-10-07] MEDS ORDERED: NICOTINE 21MG/24HR 1 EA TRANSDERMAL TD PRN (10:55)
[2023-10-07] MEDS ORDERED: traZODone 50 MG TAB PO PRN (10:55)
[2023-10-07] MEDS ORDERED: LORazepam 2 MG TAB PO PRN (10:55)
[2023-10-07] MEDS ORDERED: IBUPROFEN 400MG TAB PO PRN (10:55)
[2023-10-07] MEDS ORDERED: OLANZapine ORAL DISINTEGRATING TAB 5MG PO PRN (10:55)
[2023-10-07] MEDS ORDERED: MAALOX 30 ML SUSP *UDC PO PRN (10:55)
[2023-10-07] MEDS ORDERED: diphenhydrAMINE 25MG CAP PO PRN (10:55)
[2023-10-07 12:18] VITALS: BP 141/86; TEMP 97.9; O2SAT 100
[2023-10-07] MEDS: FOLIC ACID 1MG TAB PO SCH (13:14)
[2023-10-07] MEDS: MULTIVITAMINS/MINERALS THERAP 1 TAB PO SCH (13:15)
[2023-10-07] MEDS: THIAMINE 100 MG TAB PO SCH (13:15)
[2023-10-07 13:18] VITALS: BP 141/86
[2023-10-07] MEDS ORDERED: diazePAM 5MG TABLET PO PRN (15:10)
[2023-10-07 20:24] VITALS: BP 140/88
[2023-10-07] MEDS: MIRTAZAPINE 7.5MG PER 1/2 TABLET PO PRN (21:51)
[2023-10-08] MEDS: LEVOTHYROXINE 100MCG TABLET (0.1MG) PO SCH (06:17)
[2023-10-08 06:30] VITALS: BP 153/73
[2023-10-08 06:51] VITALS: BP 153/73; TEMP 96.7; O2SAT 96
[2023-10-08 08:10] LABS: ALBUMIN 3.3 G/DL (3.2-5.2); ALKALINE PHOSPHATASE 62 U/L (46-116); ALT/SGPT 58 U/L (7.0-40); AST/SGOT 34 U/L (<34); BILIRUBIN,TOTAL 0.9 MG/DL (0.3-1.2); BLOOD UREA NITROGEN 15 MG/DL (9-23); CALCIUM LEVEL 9.1 MG/DL (8.3-10.6); CARBON DIOXIDE LEVEL 32 MMOL/L (20-31); CHLORIDE LEVEL 102 MMOL/L (98-107); CREATININE FOR GFR 1.14 MG/DL (0.70-1.30); GLOMERULAR FILTRATION RATE > 60.0 (>49); GLUCOSE, FASTING 116 MG/DL (74-106); POTASSIUM SERUM 4.4 MMOL/L (3.5-5.1); SODIUM LEVEL 137 MMOL/L (136-145); TOTAL PROTEIN 6.6 G/DL (5.7-8.2)
[2023-10-08] MEDS: buPROPion **XL** TABLET 150MG (WELLBUTRIN XL) PO SCH (08:16)
[2023-10-08] MEDS: OMEPRAZOLE 20MG CAP PO SCH (08:16)
[2023-10-08] MEDS: ESCITALOPRAM OXALATE 10 MG TAB (LEXAPRO) PO SCH (08:17)
[2023-10-08] MEDS: lisinopriL 40MG TAB PO SCH (08:28)
[2023-10-08] MEDS ORDERED: hydroCHLOROthiazide 12.5 MG CAPSULE PO SCH (09:00)
[2023-10-08] MEDS ORDERED: ONDANSETRON 4MG ORAL DISINTEGRATING TAB PO PRN (10:40)
[2023-10-08] MEDS ORDERED: PILL CUTTER 1 EACH XX PRN (10:40)
[2023-10-08] MEDS: NALTREXONE 50 MG TAB PO SCH (11:00)
[2023-10-08 14:21] VITALS: BP 126/86
[2023-10-08 15:58] VITALS: BP 126/84; TEMP 97.5; O2SAT 98
[2023-10-08] MEDS: TESTOSTERONE TOP SCH (17:58)
[2023-10-08] MEDS: MIRTAZAPINE 15 MG TAB PO PRN (21:13)
[2023-10-09 06:47] VITALS: BP 137/78; TEMP 97.4; O2SAT 95
[2023-10-09] MEDS: ACETAMINOPHEN TAB 650MG DOSE (2X325MG) PO PRN (13:06)
[2023-10-09 17:56] VITALS: BP 141/89; TEMP 97.4
[2023-10-10 06:17] VITALS: BP 121/93; TEMP 97.3; O2SAT 95
[2023-10-10 09:12] VITALS: BP 121/93
[2023-10-10] MEDS ORDERED: MIRT-10 PO (09:28)
[2023-10-10] MEDS ORDERED: NALT50TA4 PO (09:28)
== END 2023-10-10 11:30 | disposition home or self-care (01) | DRG 882 ==
LOC: M ED 22:27 → M ED INP 10-07 10:55 → M PSY 10-07 12:11
PROVIDERS: ADMIT Student in an Organized Health Care Education/Training Program; ATTEND Student in an Organized Health Care Education/Training Program
DX: F43.10 Post-traumatic stress disorder, unspecified (principal); R45.851 Suicidal ideations; I10 Essential (primary) hypertension; F10.129 Alcohol abuse with intoxication, unspecified; Z79.890 Hormone replacement therapy; Z79.899 Other long term (current) drug therapy; E03.9 Hypothyroidism, unspecified; G47.33 Obstructive sleep apnea (adult) (pediatric); Z90.49 Acquired absence of other specified parts of digestive tract; Z91.410 Personal history of adult physical and sexual abuse

== ENCOUNTER 2024-03-11 04:26 | Observation (INO) | payer OTHER ==
[~2024-03-11] VITALS: Ht 190.5 cm; Wt 117.0 kg
[~2024-03-11 04:26] MED LIST changes: -BUPR450T PO; +BUPR450T4 PO; +LEVO175T2 PO; +LEVO200T4 PO; +LEXA1TAB2 PO; +MIRT-10 PO; +NALT50TA4 PO; +TEST75GE TD
[2024-03-11] MEDS: ONDANSETRON 4MG 2ML VIAL IV ONE ×2 (04:55→04:56)
[2024-03-11] MEDS ORDERED: HYDROMORPHONE HCL 0.5 MG/ 0.5 ML SYRINGE IV PRN (04:55)
[2024-03-11] MEDS: KETOROLAC 30 MG/ML 1ML VIAL IV ONE (04:56)
[2024-03-11 04:58] LABS: BASO # 0.1 10^3/uL (0.0-0.2); BASO % 0.5 % (0.0-1.0); EOS # 0.3 10^3/uL (0.0-0.5); EOS % 1.9 % (0.0-3.0); HEMATOCRIT 50.2 % (42.0-52.0); LYMPH # 1.7 10^3/uL (1.5-5.0); LYMPH % 12.6 % (24.0-44.0); MEAN CORPUSCULAR HEMOGLOBIN 30.8 pg (27.0-33.0); MEAN CORPUSCULAR HGB CONC 33.9 g/dl (32.0-36.5); MEAN CORPUSCULAR VOLUME 90.9 fl (80.0-96.0); MONO % 7.3 % (2.0-8.0); NEUTROPHILS # 10.2 10^3/uL (1.5-8.5); NEUTROPHILS % 77.3 % (36.0-66.0); PLATELET COUNT, AUTOMATED 332 10^3/uL (150-450); RED BLOOD COUNT 5.52 10^6/uL (4.30-6.10); WHITE BLOOD COUNT 13.2 10^3/uL (4.0-10.0)
[2024-03-11] MEDS: HYDROMORPHONE HCL 0.5 MG/ 0.5 ML SYRINGE IV ONE (05:01)
[2024-03-11 05:24] LABS: LIPASE 130 U/L (12-53)
[2024-03-11 05:26] LABS: ALKALINE PHOSPHATASE 87 U/L (40-129); ALT/SGPT 46 U/L (7.0-40); AST/SGOT 22 U/L (<34); BILIRUBIN,DIRECT 0.2 MG/DL (<0.4); BILIRUBIN,TOTAL 0.8 MG/DL (0.3-1.2); BLOOD UREA NITROGEN 14 MG/DL (9-23); CALCIUM LEVEL 10.6 MG/DL (8.3-10.6); CARBON DIOXIDE LEVEL 26 MMOL/L (20-31); CHLORIDE LEVEL 104 MMOL/L (98-107); CREATININE FOR GFR 0.95 MG/DL (0.70-1.30); GLOMERULAR FILTRATION RATE > 60.0 (>49); GLUCOSE, FASTING 149 MG/DL (74-106); POTASSIUM SERUM 4.2 MMOL/L (3.5-5.1); SODIUM LEVEL 137 MMOL/L (136-145); TOTAL PROTEIN 7.7 G/DL (5.7-8.2)
[2024-03-11] MEDS ORDERED: THERTAB52 PO (07:05)
[2024-03-11] MEDS ORDERED: D3 S1CAP3 PO (07:05)
[2024-03-11] MEDS ORDERED: HOME MED LIST COMPLETE! XX SCH (07:05)
[2024-03-11] MEDS ORDERED: PANT40TA29 PO (07:05)
[2024-03-11] MEDS ORDERED: NALT50TA4 PO (07:05)
[2024-03-11] MEDS ORDERED: PRAZ1CAP PO (07:05)
[2024-03-11] MEDS ORDERED: diazePAM 10MG/2ML SYRINGE IV PRN (08:50)
[2024-03-11 09:30] LABS: PROCALCITONIN 0.04 ng/ml
[2024-03-11] MEDS: KETOROLAC 30 MG/ML 1ML VIAL IV PRN (09:53)
[2024-03-11] MEDS: NS 1,000 ML IV SCH ×2 (09:54→15:41)
[2024-03-11] MEDS: ENOXAPARIN 40MG/0.4ML SYRINGE (J1650 PER 10MG) SC SCH (09:54)
[2024-03-11] MEDS: PANTOPRAZOLE 40MG VIAL IV SCH (09:54)
[2024-03-11] MEDS ORDERED: ONDANSETRON 4MG 2ML VIAL IV PRN (12:35)
[2024-03-11 14:01] VITALS: BP 118/74; TEMP 97.9; O2SAT 96
[2024-03-11 20:00] VITALS: BP 120/73; TEMP 98.1; O2SAT 94
[2024-03-11] MEDS: HYDROMORPHONE HCL 0.5 MG/ 0.5 ML SYRINGE IV PRN (22:19)
[2024-03-12] VITALS: BP 134/79; TEMP 98.6; O2SAT 95
[2024-03-12 04:00] VITALS: BP 97/55; TEMP 98.2; O2SAT 96
[2024-03-12 06:23] LABS: HEMATOCRIT 45.4 % (42.0-52.0); MEAN CORPUSCULAR HEMOGLOBIN 30.6 pg (27.0-33.0); MEAN CORPUSCULAR HGB CONC 32.4 g/dl (32.0-36.5); MEAN CORPUSCULAR VOLUME 94.4 fl (80.0-96.0); PLATELET COUNT, AUTOMATED 243 10^3/uL (150-450); RED BLOOD COUNT 4.81 10^6/uL (4.30-6.10)
[2024-03-12 06:33] LABS: HEMOGLOBIN 14.7 g/dl (13.5-17.5)
[2024-03-12 06:45] VITALS: BP 127/74
[2024-03-12 06:47] LABS: BLOOD UREA NITROGEN 21 MG/DL (9-23); CALCIUM LEVEL 9.1 MG/DL (8.3-10.6); CARBON DIOXIDE LEVEL 32 MMOL/L (20-31); CHLORIDE LEVEL 107 MMOL/L (98-107); CREATININE FOR GFR 1.08 MG/DL (0.70-1.30); GLOMERULAR FILTRATION RATE > 60.0 (>49); GLUCOSE, FASTING 95 MG/DL (74-106); POTASSIUM SERUM 4.4 MMOL/L (3.5-5.1); SODIUM LEVEL 141 MMOL/L (136-145)
[2024-03-12] MEDS: MOM 30ML SUSPENSION UDC PO ONE (10:03)
[2024-03-12 12:00] VITALS: BP 127/75; TEMP 97.9; O2SAT 95
[2024-03-12] MEDS: PERCOCET 5MG/325MG TAB PO ONE (12:08)
[2024-03-12 19:59] VITALS: BP 132/77; TEMP 98.2; O2SAT 96
[2024-03-12] MEDS: PERCOCET 5MG/325MG TAB PO PRN (21:51)
[2024-03-12 23:10] VITALS: BP 132/77
[2024-03-12] MEDS: PRAZOSIN 1 MG CAP PO SCH (23:10)
[2024-03-13 04:00] VITALS: BP 112/69; TEMP 97.9; O2SAT 95
[2024-03-13 06:19] LABS: HEMATOCRIT 43.3 % (42.0-52.0); HEMOGLOBIN 14.2 g/dl (13.5-17.5); MEAN CORPUSCULAR HEMOGLOBIN 30.7 pg (27.0-33.0); MEAN CORPUSCULAR HGB CONC 32.8 g/dl (32.0-36.5); MEAN CORPUSCULAR VOLUME 93.5 fl (80.0-96.0); PLATELET COUNT, AUTOMATED 233 10^3/uL (150-450); RED BLOOD COUNT 4.63 10^6/uL (4.30-6.10); WHITE BLOOD COUNT 7.2 10^3/uL (4.0-10.0)
[2024-03-13] MEDS: LEVOTHYROXINE 25MCG TABLET (0.025MG) PO SCH (06:29)
[2024-03-13] MEDS: LEVOTHYROXINE 150MCG TABLET (0.15MG) PO SCH (06:29)
[2024-03-13 06:50] LABS: ALBUMIN 3.2 G/DL (3.2-5.2); ALKALINE PHOSPHATASE 64 U/L (40-129); ALT/SGPT 34 U/L (7.0-40); AST/SGOT 11 U/L (<34); BILIRUBIN,TOTAL 0.4 MG/DL (0.3-1.2); BLOOD UREA NITROGEN 16 MG/DL (9-23); CALCIUM LEVEL 9.3 MG/DL (8.3-10.6); CARBON DIOXIDE LEVEL 31 MMOL/L (20-31); CHLORIDE LEVEL 109 MMOL/L (98-107); CREATININE FOR GFR 0.89 MG/DL (0.70-1.30); GLOMERULAR FILTRATION RATE > 60.0 (>49); GLUCOSE, FASTING 108 MG/DL (74-106); POTASSIUM SERUM 4.5 MMOL/L (3.5-5.1); SODIUM LEVEL 141 MMOL/L (136-145); TOTAL PROTEIN 6.3 G/DL (5.7-8.2)
[2024-03-13] MEDS: BISACODYL 10MG SUPP PR SCH (09:00)
[2024-03-13] MEDS: buPROPion **XL** TABLET 150MG (WELLBUTRIN XL) PO SCH (09:56)
[2024-03-13] MEDS: ESCITALOPRAM OXALATE 10 MG TAB (LEXAPRO) PO SCH (09:56)
[2024-03-13] MEDS: DOCUSATE SODIUM 100MG CAPSULE PO SCH (09:56)
[2024-03-13] MEDS ORDERED: COLA100C5 PO (10:50)
[2024-03-13] MEDS ORDERED: SENO8.6T5 PO (10:50)
[2024-03-13] MEDS ORDERED: MIRA3350 PO (10:50)
[2024-03-13] MEDS ORDERED: SENNA 8.6 MG TAB (SENOKOT) PO SCH (21:00)
== END 2024-03-13 11:49 | disposition home or self-care (01) ==
LOC: M ED 04:26 → M ED INP 04:27 → M MSPAV 14:01
PROVIDERS: ADMIT Internal Medicine; ATTEND Internal Medicine
DX: K56.600 Partial intestinal obstruction, unspecified as to cause (principal); R11.10 Vomiting, unspecified; Z87.19 Personal history of other diseases of the digestive system; Z90.49 Acquired absence of other specified parts of digestive tract; Z93.3 Colostomy status; I95.9 Hypotension, unspecified; I10 Essential (primary) hypertension; E03.9 Hypothyroidism, unspecified; F39 Unspecified mood [affective] disorder; F43.10 Post-traumatic stress disorder, unspecified; K21.9 Gastro-esophageal reflux disease without esophagitis; Z98.890 Other specified postprocedural states; Z79.899 Other long term (current) drug therapy; Z79.890 Hormone replacement therapy
CPT/HCPCS: 36415; 74018; 74176; 80047; 80048; 80053; 80076; 83605; 83690; 83735; 84145; 85025; 85027; 96361; 96372; 96374; 96375; 96376; 99285; G0378; J1171; J1650; J1885; J2405; J2470

== ENCOUNTER → 2024-10-03 | Outpatient (CLI) | payer OTHER ==
[~2024-10-03] MED LIST changes: +COLA100C5 PO; +D3 S1CAP3 PO; +MIRA3350 PO; +PANT40TA29 PO; +PRAZ1CAP PO; +SENO8.6T5 PO; +THERTAB52 PO
== END ==
LOC: M CARPUL 07:28
PROVIDERS: ATTEND Registered Nurse
DX: R94.31 Abnormal electrocardiogram [ECG] [EKG] (principal); R07.9 Chest pain, unspecified; R06.02 Shortness of breath

== ENCOUNTER → 2024-12-09 | Outpatient (CLI) | payer OTHER ==
[~2024-12-09] MED LIST changes: +FLUO-290 PO; +MEDR4TAB PO; +NAPR-849 PO; +SENN-225 PO; -SENO8.6T5 PO; +TIZA4CAP PO
== END ==
LOC: M CARPUL 11:04
PROVIDERS: ATTEND Registered Nurse
DX: R94.31 Abnormal electrocardiogram [ECG] [EKG] (principal); R06.02 Shortness of breath